=== PATIENT | male | born 1990 | race American Indian/Alaskan Native ===

== ENCOUNTER 2019-10-10 09:46 | Emergency (ER) | payer OTHER ==
[2019-10-10 10:12] VITALS: BP 137/72
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
== END 2019-10-10 11:08 | disposition home or self-care (01) ==
LOC: ED 09:46
DX: S16.1XXA Strain of muscle, fascia and tendon at neck level, initial encounter (principal); M79.18 Myalgia, other site; F12.90 Cannabis use, unspecified, uncomplicated; V49.49XA Driver injured in collision with other motor vehicles in traffic accident, initial encounter; Y92.410 Unspecified street and highway as the place of occurrence of the external cause; Y92.89 Other specified places as the place of occurrence of the external cause; Y99.8 Other external cause status
CPT/HCPCS: 99281